=== PATIENT | female | born 1960 | race Caucasian/White ===

== ENCOUNTER 2017-06-13 15:37 | Emergency (ER) | payer OTHER ==
[~2017-06-13] VITALS: Ht 177.8 cm; Wt 60.0 kg
[2017-06-13] MEDS ORDERED: AMANTADINE100 MG PO (16:18)
[2017-06-13] MEDS ORDERED: CITALOPRAM20 MG PO (16:19)
[2017-06-13] MEDS ORDERED: BUSPIRONE5 MG PO (16:19)
[2017-06-13] MEDS ORDERED: RISPERIDONE2 MG PO (16:19)
[2017-06-13] MEDS ORDERED: ATENOLOL25 MG PO (16:20)
[2017-06-13] MEDS ORDERED: LEVOTHYROXIN75 MCG PO (16:20)
[2017-06-13 16:39] LABS: ALBUMIN 4.4 g/dL (3.2-5.0); ALKALINE PHOSPHATASE 43 u/l (38-126); ANION GAP 16 (6-22 (CALC)); BILIRUBIN, TOTAL 0.7 mg/dL (0.0-1.4); BUN 16 mg/dL (7-17); BUN/CREATININE RATIO 16 (12-20 (CALC)); CARBON DIOXIDE 29 mmol/l (22-30); CHLORIDE 103 mmol/l (95-108); GFR 58 ML/MIN (>=60 (CALC)); GFR FOR AFR.AMER. > 60 ML/MIN (>=60 (CALC)); POTASSIUM 4.4 mmol/l (3.5-5.1); SGOT/AST 31 u/l (14-36); SGPT/ALT 32 u/l (9-52); SODIUM 144 mmol/l (137-146); TOTAL PROTEIN 7.2 g/dL (6.3-8.2)
[2017-06-13 17:06] LABS: HEMATOCRIT 34.3 % (37.0-47.0); HEMOGLOBIN 12.2 g/dl (12.0-16.0); IMMATURE GRANULOCYTES 0.2 % (0.0-1.0); MEAN CELL VOLUME 89.8 fL CALC (80.0-100.0); MEAN CORPUSCULAR HGB 31.9 pG CALC (26.0-32.0); MEAN CORPUSCULAR HGB CONC 35.6 g/L CALC (32.0-36.0); NEUT# 3.09 thou/uL (2.00-7.15); RED BLOOD COUNT 3.82 mill/uL (4.20-5.60); RED CELL DISTRI WIDTH 12.2 % (11.5-15.5)
[2017-06-13 17:20] LABS: INFLUENZA A NONE DETECTED (NONE DETECT); INFLUENZA B NONE DETECTED (NONE DETECT)
[2017-06-13] MEDS ORDERED: LEVOTHYROXIN100 MC1 PO (17:37)
[2017-06-13 18:01] VITALS: BP 114/74
== END 2017-06-13 18:42 | disposition home or self-care (01) | DRG 948 ==
LOC: ED 15:37
PROVIDERS: Family Medicine
DX: R53.1 Weakness (principal); R42 Dizziness and giddiness; F25.9 Schizoaffective disorder, unspecified; I10 Essential (primary) hypertension; E03.9 Hypothyroidism, unspecified; Q13.1 Absence of iris

== ENCOUNTER 2017-09-12 13:10 | Emergency (ER) | payer OTHER ==
[~2017-09-12] VITALS: Ht 177.8 cm; Wt 56.0 kg
[~2017-09-12 13:10] MED LIST: AMANTADINE100 MG PO; ATENOLOL25 MG PO; BUSPIRONE5 MG PO; CITALOPRAM20 MG PO; LEVOTHYROXIN100 MC1 PO; LEVOTHYROXIN75 MCG PO; RISPERIDONE2 MG PO
[2017-09-12] MEDS ORDERED: INGREZZA80 MG PO (13:29)
[2017-09-12 13:39] LABS: HEMATOCRIT 36.7 % (37.0-47.0); HEMOGLOBIN 13.4 g/dl (12.0-16.0); IMMATURE GRANULOCYTES 0.2 % (0.0-1.0); MEAN CELL VOLUME 88.9 fL CALC (80.0-100.0); MEAN CORPUSCULAR HGB 32.4 pG CALC (26.0-32.0); MEAN CORPUSCULAR HGB CONC 36.5 g/L CALC (32.0-36.0); NEUT# 7.53 thou/uL (2.00-7.15); RED BLOOD COUNT 4.13 mill/uL (4.20-5.60); RED CELL DISTRI WIDTH 11.2 % (11.5-15.5)
[2017-09-12 14:00] LABS: ALBUMIN 4.3 g/dL (3.2-5.0); ALKALINE PHOSPHATASE 53 u/l (38-126); ANION GAP 15 (6-22 (CALC)); BILIRUBIN, TOTAL 0.7 mg/dL (0.0-1.4); BUN 14 mg/dL (7-17); BUN/CREATININE RATIO 18 (12-20 (CALC)); CARBON DIOXIDE 31 mmol/l (22-30); CHLORIDE 99 mmol/l (95-108); CREATININE 0.8 mg/dL (0.5-1.0); GFR > 60 ML/MIN (>=60 (CALC)); GFR FOR AFR.AMER. > 60 ML/MIN (>=60 (CALC)); POTASSIUM 3.9 mmol/l (3.5-5.1); SGOT/AST 41 u/l (14-36); SGPT/ALT 33 u/l (9-52); SODIUM 142 mmol/l (137-146); TOTAL PROTEIN 7.5 g/dL (6.3-8.2)
[2017-09-12 14:30] VITALS: BP 116/84
== END 2017-09-12 14:57 | disposition home or self-care (01) | DRG 392 ==
LOC: ED 13:10
PROVIDERS: Emergency Medicine
DX: R13.10 Dysphagia, unspecified (principal); F25.9 Schizoaffective disorder, unspecified; I10 Essential (primary) hypertension; H54.8 Legal blindness, as defined in USA; E03.9 Hypothyroidism, unspecified